=== PATIENT | female | born 1990 | race Hispanic/Latino ===

== ENCOUNTER 2017-04-12 22:31 | Emergency (ER) | payer OTHER ==
[~2017-04-12] VITALS: Ht 157.5 cm; Wt 68.2 kg
[~2017-04-12 22:31] MED LIST: DOCU-41 PO; HYDR-4003 PO; IBUP800T28 PO; SERT50TA9 PO
[2017-04-12 22:33] VITALS: BP 141/82; PULSE 78; RESP 20; O2SAT 98
--- NOTE | 2017-04-12 23:09 | ED.REPORT ---
HPI-Chest Pain Under 40 Date of Service Apr 12, 2017 ED Provider: Ryne Wolfe MD A 26 year old female with a history of UTI presents to the ED complaining of chest pain. The pain is described as "pressure with sharp pains" that began at 16:00 today. The pain is exacerbated by movement and worsened somewhat by breathing deeply. The pt denies shortness of breath, fever, cough, hemoptysis, lower extremity pain or lower extremity swelling. She has not experienced similar symptoms before. The pt is on hormone therapy and denies recent travel. Nursing Notes Stated Complaint: CHEST PAIN Chief Complaint: Chest Pain Nursing Notes Reviewed: Yes Allergies: Coded Allergies: No Known Allergies (Verified , 06/15/16) Scheduled Docusate Sodium (Colace) 100 Mg Capsule 100 MG PO BID Sertraline HCl (Sertraline) 50 Mg Tablet 50 MG PO DAILY Scheduled PRN Hydrocodone-Acetaminophen 5-325 mg (Hydrocodone-Acetaminophen 5-325 mg) 1 Each Tablet 1-2 TABLET PO Q4H PRN PRN For Pain Ibuprofen (Ibuprofen) 800 Mg Tablet 800 MG PO Q6H PRN PRN For Pain Ibuprofen (Ibuprofen) 800 Mg Tablet 800 MG PO TID PRN PRN For Pain General Time Seen by MD: 23:09 Chief Complaint Chest pain Hx Obtained From: Patient Arrived By: Walk-in Sudden in Onset?: Yes Onset Occurred: 5 - 8 hours ago Symptom Duration: Since onset Recent Healthcare: No recent hospitalization, Recent doctor visit Similar Sx Previous: No Past Medical History Past Medical History A2, LC3 UTI Past Surgical History none reported Smoking History Never Smoker Social History Alcohol Use: Denies alcohol use Drug Use: Denies drug use Other Social History: Local resident Ambulatory Status Independent Review of Systems Constitutional: Denies: Fever Respiratory: Reports: Pleuritic pain, Denies: Non-productive cough, Prod cough, bloody, Shortness of breath Cardiovascular: Reports: Chest pain GI: Denies: Abdominal pain, Vomiting Musculoskeletal: Denies: Extremity pain, Extremity swelling Skin: Denies Rash Complete sys rev & neg: except as marked. Physical Exam Initial Vital Signs Vital Signs (First) Date Time Temp Pulse Resp B/P Pulse Ox O2 Delivery O2 Flow Rate FiO2 04/12/17 22:33 36.8 78 20 141/82 98 Room Air Initial VS: Reviewed General/Constitutional: Awake, Alert Respiratory / Chest: Breath sounds NL, Breath sounds = bilat, No respiratory distress questionable reproducible tenderness, left anterior chest wall Cardiovascular: Heart rate NL, Regular rhythm, Heart sounds NL, No murmurs Neck: Atraumatic, Supple, Full range of motion Abdomen: Atraumatic, Soft, Non-tender Back: Atraumatic, Full range of motion Lower Extremity / Pelvis / MS: Atraumatic, Full range of motion Skin: Atraumatic, Color NL, No rash, Warm, Dry Neurologic: Oriented X3, Speech NL, No motor deficits, No sensory deficits Psychiatric: Affect NL, Mood NL Head / Eyes: Atraumatic, Normocephalic, PERRL, EOMI ENT: Atraumatic, Airway patent, Mucous membranes moist Upper Extremity / MS: Atraumatic, Full range of motion Interpretation & Diagnostics Lab Results Interpretation Result Diagram: 04/12/17 2311 04/12/17 2311 Test 04/12/17 23:11 04/12/17 23:47 White Blood Count 7.0th/mm3 (3.8-10.1) Red Blood Count 4.22mil/mm3 (3.90-5.20) Hemoglobin 12.4g/dL (12.0-15.6) Hematocrit 37.3% (35.0-46.0) Mean Corpuscular Volume 88.4fL (81-100) Mean Corpuscular Hemoglobin 29.4pg (27.0-35.0) Mean Corpuscular Hemoglobin Concent 33.2% (32.0-37.0) Red Cell Distribution Width 13.8% (12.3-15.4) Platelet Count 206bil/L (150-400) Neutrophils (%) (Auto) 38.1% (40-74) Lymphocytes (%) (Auto) 46.3% (14-46) Monocytes (%) (Auto) 11.7% (4-12) Eosinophils (%) (Auto) 3.4% (0-5) Basophils (%) (Auto) 0.4% (0-3) Sodium Level 143mEq/L (134-144) Potassium Level 3.8mEq/L (3.5-5.2) Chloride Level 106mEq/L (97-108) Carbon Dioxide Level 22mmol/L (18-29) Blood Urea Nitrogen 15mg/dL (6-20) Creatinine 0.64mg/dL (0.57-1.00) Estimat Glomerular Filtration Rate 162mL/min (>59) Glucose Level 116mg/dL (60-99) Calcium Level 9.1mg/dL (8.5-10.1) Magnesium Level 1.8mg/dL (1.6-2.6) Total Bilirubin 0.2mg/dL (0.0-1.2) Aspartate Amino Transf (AST/SGOT) 22U/L (0-50) Alanine Aminotransferase (ALT/SGPT) 13U/L (0-32) Alkaline Phosphatase 102U/L (25-150) Troponin T 0.010ug/L (0.0-0.011) Total Protein 7.2g/dL (6.4-8.4) Albumin 4.3g/dL (3.4-5.0) D-Dimer < 0.50mg/L FEU (<0.50) ECG Interpretation ECG Interpretation: normal sinus rhythm with a rate of [address] changes Time: 22:49 Interpreted by: ED physician X-Ray Chest Interpretation Chest Xray Interpretation: no acute disease Interpretation / Wet Read by: Wet read ED physician Re-Eval/Medical Decision Med Decision/Clinical Course 26-year-old female presenting complaining of left-sided chest pain and upper back pain since 4:00 today. It is worse with movement. Vital signs are stable. Possible reproducible nature. Improvement with Toradol. D-dimer and troponins are negative. Chest x-ray is clear. No EKG changes. Likely musculoskeletal. Patient is discharged home with return precautions. Follow up primary doctor. Return precautions given. Source of Hx: Old records Re-Evaluation/Progress : Time of Eval: 00:16 Patient Status: Condition improved Re-Evaluation/Progress Note: Pt rechecked, who is resting. The diagnosis and plan for discharge are discussed. The pt understands and agrees with the plan. All questions are addressed at this time. Counseled Regarding: Diagnosis, Lab results, Need for follow-up, When/why to return to ED Discharge & Departure Primary Impression: Non-cardiac chest pain Disposition: Home Discharge Condition All VS Reviewed: Yes Condition: Stable Patient Instructions: Noncardiac Chest Pain (ED) Additional Instructions: Thank you for allowing us to be part of your care. Take ibuprofen as directed for pain. No heavy lifting. Use ice or heat several times daily as needed. Call your primary care physician to arrange a follow up appointment this week. Return to the emergency department if you develop recurring chest pain, fever, shortness of breath, nausea or vomiting or any new or worsening symptoms. Referrals: [facility] Scribe Attestation Portions of this note were transcribed by Francis Hinojosa. I, Dr. Wolfe personally performed the history, physical exam and medical decision-making; I reviewed and confirmed the accuracy of the information in the transcribed note. copies to: [facility] Ryne Wolfe MD Apr 12, 2017 23:09 FRANCIS HINOJOSA Apr 12, 2017 23:48
[2017-04-12 23:19] LABS: Mean Corpuscular Hemoglobin 29.4 pg (27.0-35.0); Mean Corpuscular Volume 88.4 fL (81-100)
[2017-04-12 23:20] LABS: BASOPHILS % (AUTO) 0.4 % (0-3); EOSINOPHILS % (AUTO) 3.4 % (0-5); MONOCYTES % (AUTO) 11.7 % (4-12); NEUTROPHILS % (AUTO) 38.1 % (40-74); Platelet Count 206 bil/L (150-400)
[2017-04-12 23:37] LABS: TROPONIN T 0.01 ug/L (0.0-0.011)
[2017-04-12 23:49] LABS: Magnesium 1.8 mg/dL (1.6-2.6)
[2017-04-13 00:14] VITALS: BP 110/64; PULSE 68; RESP 17; O2SAT 99
[2017-04-13] MEDS ORDERED: IBUP800T28 PO (00:20)
[2017-04-13 00:39] VITALS: BP 110/64; PULSE 68; RESP 17; O2SAT 99
--- NOTE | 2017-04-13 10:52 | DRSVH ---
PROCEDURE: X-RAY CHEST ONE VIEW, PORTABLE ([id number]) INDICATIONS: cp TECHNIQUE: One view of the chest was acquired. COMPARISON: [facility], CR, CHEST 2VW, 09/13/2007, 17:42. FINDINGS: Surgical changes and devices: None. Lungs and pleura: No pleural effusions or pneumothorax. Lungs are clear. Mediastinum: Mediastinal contours appear normal. Heart size is normal. Bones and chest wall: No suspicious bony lesions. Overlying soft tissues appear unremarkable. IMPRESSION: No acute cardiopulmonary disease. Dictated by: Slim Martin [facility] Interpreted: Gilberto Nieto MD on 04/13/2017 at 8:49 Approved by: Gilberto Nieto M.D. on 04/13/2017 at 10:49
== END 2017-04-13 00:40 | disposition home or self-care (01) ==
LOC: SED 22:31
DX: R07.89 Other chest pain (principal)
CPT/HCPCS: 36415; 71010; 80053; 83735; 84484; 85025; 85378; 93005; 96374; 99285; J1885